=== PATIENT | male | born 2000 | race Hispanic/Latino ===

== ENCOUNTER 2024-08-11 02:57 | Emergency (ER) | payer SELFPAY ==
[~2024-08-11] VITALS: Ht 167.6 cm; Wt 90.3 kg
[2024-08-11] MEDS ORDERED: TRIAMCINOLONE ACETONIDE 40 MG/ML 1ML VIAL SQ ONE (04:00)
--- NOTE | 2024-08-11 04:14 | ERN ---
General Chief Complaint: Ankle Problem Stated Complaint: C/O PAIN, SWELLING TO ANKLES; DENIES ANY TRAUMA Time Seen by MD: 03:39 History of Present Illness Initial Comments 24-year-old male with no past medical history comes in with acute onset of redness swelling and pain to his bilateral ankles that evolved in a matter of hours. He has trouble walking because of the pain he has trouble fully exten ding or fully flexing his feet because of his pain. No other associated symptoms such as fevers chills headache shortness of breath. His father has gout and he is concerned that this is his 1st gout flare. When I asked about his diet he said he eats very unhealthy daily. Allergies: Coded Allergies: No Known Drug Allergies (Unverified Allergy, Unknown, 06/22/18) Home Meds No Active Prescriptions or Reported Meds Past Medical History Past Medical History: No Pertinent History Past Surgical History: Appendectomy Constitutional: (-) chills, (-) diaphoresis, (-) fever, (-) malaise, (-) weakness, (-) other documentation EENTM: (-) eye pain, (-) blurred vision, (-) tearing, (-) double vision, (-) ear pain, (-) ear discharge, (-) nose pain, (-) nose congestion, (-) throat pain, (-) Throat swelling, (-) mouth pain, (-) tooth pain, (-) mouth swelling, (-) other documentation Respiratory: (-) cough, (-) orthopnea, (-) short of breath, (-) stridor, (-) wheezing, (-) other documentation Cardiovascular: (-) chest pain, (-) edema, (-) palpitations, (-) syncope, (-) dyspnea on exertion, (-) other documentation Gastrointestinal/Abdominal: (-) nausea, (-) vomiting, (-) diarrhea, (-) ab dominal pain, (-) abdominal distention, (-) constipation, (-) rectal bleeding, (-) dark stool/melena, (-) other documentation Musculoskeletal: (-) Neck pain, (-) back pain, (-) Flank Pain, (-) joint pain, (-) joint swelling, (-) muscle pain, (-) muscle stiffness, (-) gout, (-) other documentation Skin: (-) laceration, (-) contusion, (-) abrasion, (-) abscess, (-) rash, (-) change in color, (-) change in hair, (-) change in nails, (-) diaphoresis, (-) dryness, (-) other documentation Physical Exam General Appearance: (+) moderate distress Orientation: (+) alert, (+) oriented x 3 Head/Face Trauma: No Eye: bilateral eye normal inspection, bilateral eye PERRL, bilateral eye EOMI Ear, Nose, Throat: (+) hearing grossly normal, (+) normal ENT inspection, (+) moist mucous membraine Neck: (+) normal inspection, (+) supple, (+) full range of motion Respiratory: (+) chest non-tender, (+) lungs clear, (+) well ventilated Heart: (+) regular, (+) no gallop Vascular: (+) no edema, (+) normal peripheral pulse Gastrointestinal: (+) soft, (+) non-tender, (+) bowel sound present Extremities Comment Patient's bilateral feet and ankles are red and exquisitely tender. There is mild swelling. He does not have calf swelling or tenderness. Results Laboratory and Microbiology Lab and Micro Result Laboratory Tests Test 08/11/24 04:18 White Blood Count 10.3 K/uL (4.8-10.8) Red Blood Count 5.54 MIL/uL (4.50-6.20) Hemoglobin 15.2 g/dL (14.0-18.0) Hematocrit 46.0 % (42-54) Mean Corpuscular Volume 83.0 fL (79-99) Mean Corpuscular Hemoglobin 27.4 pg (27.0-33.0) Mean Corpuscular Hemoglobin Concent 33.0 g/dL (32.0-36.0) Red Cell Distribution Width 14.6 % (11.0-15.5) Platelet Count 298 K/uL (130-400) Mean Platelet Volume 9.6 fL (7.5-10.5) Immature Granulocyte % (Auto) 0.5 % (0-1) Neutrophils (%) (Auto) 60.8 % (40.0-77.0) Lymphocytes (%) (Auto) 23.1 % (21.0-51.0) Monocytes (%) (Auto) 13.7 % (3.0-13.0) H Eosinophils (%) (Auto) 1.4 % (0.0-8.0) Basophils (%) (Auto) 0.5 % (0.0-5.0) Neutrophils # (Auto) 6.3 K/uL (1.8-7.7) Lymphocytes # (Auto) 2.4 K/uL (1.0-4.8) Monocytes # (Auto) 1.4 K/uL (0.1-1.0) H Eosinophils # (Auto) 0.14 K/uL (0.00-0.70) Basophils # (Auto) 0.05 K/uL (0.00-0.20) Absolute Immature Granulocyte (auto 0.05 K/uL (0-1) Nucleated Red Blood Cells 0.0 % (0.0-0.19) Uric Acid 3.6 mg/dL (2.6-7.2) C-Reactive Protein, Quantitative 14.40 mg/L (0.5-3.0) H MDM MDM: Differential diagnosis: Patient's symptoms are classic for gout. Ankle swelling is consistent also with DVTs although they would not create this much pain or redness. Cellulitis is also a possibility as septic arthritis. Rheumatoid arthritis. Rationale: Tests considered and ordered secondary to shared decision making include: Previous outside records reviewed: Old ER visits. Risk of complication and/or morbidity or mortality of patient management: None Medications-Per medication reconciliation Need for hospitalization: Patient does meet criteria for hospitalization. Need for emergency major/minor surgery: No There are no social concerns with this patient. Prescription drug management Prescriptions will include symptomatic care Patient's prior external medical records from other ER visits were reviewed by me as indicated. Prior testing and results from previous visits were reviewed. Prior tests were taken into account with medical decision making and resource utilization, independent historian/historians were used to obtain complete medical history. I independently interpreted the test that were performed, results were reviewed by me and considered findings on radiology if ordered. I have ordered a CBC, CRP ESR uric acid. I have also ordered IM triamcinolone and Toradol. Patient is able to walk after the triamcinolone and Toradol. The ankles look less red. Patient's C C reactive protein is high. His uric acid is normal which is very possible in early gout. I feel confident in my diagnosis of gout that I we will prescribe the patient some colchicine. He feels comfortable going home with pain medications. ED Course Orders Procedure Category Date Status Time Cbc With Differential LAB 08/11/24 In Process 03:39 Uric Acid LAB 08/11/24 Complete 03:39 Crp Quantitative LAB 08/11/24 Complete 03:39 Triamcinolone Acet PHA 08/11/24 Complete 40mg/Ml 1ml (Kenalog 04:00 Erythrocyte LAB 08/11/24 In Process Sedimentation Rate 03:39 Lactated Ringers PHA 08/11/24 Complete 1000ml (Lactated 03:48 Ketorolac 60mg/2ml PHA 08/11/24 Complete (Toradol 60mg/2ml) 03:51 Triamcinolone Acet PHA 08/11/24 Complete 40mg/Ml 1ml (Kenalog 04:00 Colchicine 0.6mg Tab PHA 08/11/24 In Process (Colchicine 0.6mg T 06:00 Current Medications Medications (Trade) Dose Ordered Sig/Yessica Route PRN Reason Start Time Stop Time Status Last Admin Dose Admin Colchicine (COLCHicine 0.6mg TAB) 0.6 mg ONCE ONCE PO 08/11/24 06:00 08/11/24 06:01 Ketorolac Tromethamine (toRADol 60MG/ 2ML) 60 mg ONCE STAT IM 08/11/24 03:51 08/11/24 03:52 DC 08/11/24 04:10 Lactated Ringer's (Lactated Ringers 1000ml) 1,000 ml BOLUS STAT IV 08/11/24 03:48 08/11/24 03:49 DC 08/11/24 04:19 Triamcinolone Acetonide (Kenalog 40) 40 mg ONCE ONCE IM 08/11/24 04:00 08/11/24 04:01 DC 08/11/24 04:21 Triamcinolone Acetonide (Kenalog 40) 40 mg ONCE ONCE SQ 08/11/24 04:00 08/11/24 03:54 DC Vital Signs Date Time Temp Pulse Resp B/P (MAP) Pulse Ox O2 Delivery O2 Flow Rate FiO2 08/11/24 04:28 99.7 100 20 137/84 99 Room Air* 0 21 08/11/24 02:58 100.2 112 20 142/86 97 Room Air DX & DISP Disposition: Discharge Departure Impression: Primary Impression: Gout attack Condition: Stable Scripts Colchicine (Colchicine) 0.6 Mg Capsule 1 CAP PO DAILY for 30 Days, #30 CAP 0 Refills Prov: JESUS PONCE MD 08/11/24 Ketorolac Tromethamine (Toradol) 10 Mg Tab 1 TAB PO Q6HPRN PRN for pain for 5 Days, #20 TAB 0 Refills Prov: JESUS PONCE MD 08/11/24 Additional Instructions: It is highly probable that you have gout and that this is your 1st flare. I doubt that you have an infectious cause because your white blood cell count is normal. I have given you a prescription for colchicine which would help control this flare. I have also given a prescription for Toradol to help control the pain. Please follow-up with her primary care physician and get a referral through a care center manager. Referrals: SELF,REFERRAL (PCP) JESUS PONCE MD Aug 11, 2024 04:14
[2024-08-11] MEDS: LACTATED RINGERS 1000ML IV STA (04:19)
[2024-08-11] MEDS: TRIAMCINOLONE ACETONIDE 40 MG/ML 1ML VIAL IM ONE (04:21)
[2024-08-11 04:28] VITALS: TEMP 99.7
[2024-08-11 04:52] LABS: IMMATURE GRANULOCYTE ABSOLUTE 0.05 K/uL (0-1); NUCLEATED RED BLOOD CELLS 0.0 % (0.0-0.19); PLATELET COUNT (AUTO) 298 K/uL (130-400); RED BLOOD CELL COUNT(AUTO) 5.54 MIL/uL (4.50-6.20); RED CELL DISTRIBUTION WIDTH 14.6 % (11.0-15.5); WHITE BLOOD COUNT (AUTO) 10.3 K/uL (4.8-10.8)
--- NOTE | 2024-08-11 05:02 | NUR ---
REPORT GIVEN TO ЕЛЕНА CAR./MADDISON
[2024-08-11] MEDS ORDERED: KETO10 PO (05:42)
[2024-08-11] MEDS ORDERED: COLC0.6C3 PO (05:42)
[2024-08-11 06:00] LABS: ERYTHROCYTE SEDIMENTATION RATE 5 MM/HR (0-15)
[2024-08-11 06:09] VITALS: BP 128/72; PULSE 90; RESP 20; O2SAT 98
== END 2024-08-11 06:12 | disposition home or self-care (01) ==
LOC: EDH 02:57
DX: M10.9 Gout, unspecified (principal); Z90.49 Acquired absence of other specified parts of digestive tract
CPT/HCPCS: 99284; 96360; 84550; 85025; 85651; 86140; 36415; 96372 ×2; J1885; J3301